=== PATIENT | male | born 2005 | race Caucasian/White ===

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

== ENCOUNTER 2023-04-11 14:08 | Emergency (ER) | payer OTHER | END 2023-04-11 15:02 | disposition home or self-care (01) | LOC: ERS 14:08 | DX: R21 Rash and other nonspecific skin eruption (principal); T78.40XA Allergy, unspecified, initial encounter; F17.210 Nicotine dependence, cigarettes, uncomplicated | CPT/HCPCS: 99282 ==

== ENCOUNTER 2023-10-22 23:13 | Emergency (ER) | payer SELFPAY ==
[2023-10-23] MEDS ORDERED: Acetaminophen 500 MG TAB ONE (00:44)
[2023-10-23] MEDS ORDERED: Dexamethasone 10 MG/ML VIAL ONE (00:44)
== END 2023-10-23 01:17 | disposition home or self-care (01) ==
LOC: ERS 23:13
DX: J02.9 Acute pharyngitis, unspecified (principal); F17.210 Nicotine dependence, cigarettes, uncomplicated
CPT/HCPCS: 87081; 87430; 99283; J1100